=== PATIENT | female | born 1945 | race Caucasian/White ===

== ENCOUNTER 2017-10-31 13:41 | Inpatient (IN) | payer OTHER ==
[~2017-10-31] VITALS: Ht 162.6 cm; Wt 95.3 kg
[2017-10-31] MEDS ORDERED: VALSARTAN80 M1 PO (15:03)
[2017-10-31] MEDS ORDERED: METOPROLOL TART50 M1 PO (15:04)
[2017-10-31] MEDS ORDERED: ASPIRIN EC325 M2 PO (15:04)
[2017-10-31] MEDS ORDERED: FUROSEMIDE40 M1 PO (15:05)
[2017-10-31] MEDS ORDERED: ZOCOR20 M1 PO (15:06)
[2017-10-31] MEDS ORDERED: OXYBUTYNIN CHLO15 M1 PO (15:06)
[2017-10-31] MEDS ORDERED: FLUOXETINE HCL20 M2 PO (15:07)
[2017-10-31] MEDS ORDERED: CYCLOBENZAPRINE5 M2 PO (15:08)
[2017-10-31] MEDS ORDERED: GABAPENTIN400 M2 PO (15:09)
[2017-10-31] MEDS ORDERED: OXYCODONE-ACET1 EAC1 PO (15:09)
[2017-10-31] MEDS ORDERED: OMEPRAZOLE40 M1 PO (15:10)
[2017-10-31] MEDS ORDERED: RANITIDINE HCL150 MG PO (15:11)
[2017-10-31] MEDS ORDERED: LOMOTIL 2.5-0.1 EACH PO (15:11)
[2017-10-31] MEDS ORDERED: BUDESONIDE EC3 MG PO (15:11)
--- NOTE | 2017-10-31 15:39 | ED UPPER/LOWER EXTREMITY COMPL ---
History of Present Illness General Chief Complaint: Lower Extremity Problems Stated Complaint: RIGHT LEG CELLULITIS, SENT BY DR DOTSON Source: patient, family Exam Limitations: no limitations Allergies Coded Allergies: acetaminophen (From TYLENOL) (NAUSEA 10/31/17) solifenacin (From VESICARE) (RASH, SWELLING 10/31/17) Reconcile Medications Aspirin (Ecotrin*) 325 MG TABLET.DR 1 TAB PO DAILY HEART HEALTH (Reported) Budesonide (Budesonide EC) 3 MG CAPDR...ER 1 CAP PO TID UNKNOWN (Reported) Cyclobenzaprine HCl 5 MG TABLET 1 TAB PO TIDPRN PRN PAIN (Reported) Diphenoxylate HCl/Atropine (Lomotil 2.5-0.025 MG Tablet) 2.5 MG-0.025 MG TABLET 1 TAB PO TID PRN DIARRHEA (Reported) Fluoxetine HCl 20 MG CAPSULE 1 CAP PO DAILY MENTAL HEALTH (Reported) Furosemide 40 MG TABLET 1 TAB PO DAILY WATER RETENTION (Reported) Gabapentin 400 MG CAPSULE 1 CAP PO 4 TIMES/DAY UNKNOWN (Reported) Metoprolol Tartrate 50 MG TABLET 1 TAB PO TID HEART (Reported) Omeprazole 40 MG CAPSULE.DR 1 CAP PO DAILY GI (Reported) Oxybutynin Chloride (Oxybutynin Chloride ER) 15 MG TAB.ER.24 1 TAB PO TID BLADDER (Reported) Oxycodone HCl/Acetaminophen (Oxycodone-Acetaminophen 10-325) 10 MG-325 MG TABLET 1 TAB PO 4 TIMES/DAY PAIN (Reported) Ranitidine (Ranitidine HCl) 150 MG TABLET 1 TAB PO BID GI (Reported) Simvastatin (Zocor*) 20 MG TABLET 1 TAB PO DAILY CHOLESTEROL (Reported) Valsartan 80 MG TABLET 1 TAB PO DAILY HEART (Reported) Triage Note: SIB DR DOTSON FOR RIGHT LEG CELLULITIS. PT FAILED PO ANTIBIOTICS. PT ALSO STATES SHE IS DIZZY. BP IN TRIAGE 86/49 Triage Nurses Notes Reviewed? yes Onset: Gradual Duration: week(s): Timing: recent history Severity: moderate Pain/Injury Location: Right: Leg. HPI: 72YO female with hx of CHF, HTN presents to ED complaining of cellulitis to RLE. Patient states that this about 10 days ago she had her right knee tapped at an orthopedic office. A few days later patient had redness and swelling to her right nicholson. Patient's primary care doctor who started her on Keflex. Patient states that redness and swelling continued to increase and primary care started on Bactrim. She has had persistent cellulitis which has been spreading/ worsening and was referred here to the emergency department. Patient reports intermittent pains in right leg, worse with walking. She has no history of a similar infection. Patient denies injury or bleeding to area. She denies fevers, chills, abdominal pain, vomiting. (Iman Hodgson) Vital Signs & Intake/Output Vital Signs & Intake/Output Vital Signs Date Time Temp Pulse Resp B/P B/P Pulse O2 O2 Flow FiO2 Mean Ox Delivery Rate 10/31 2101 98.4 84 17 150/69 97 Room Air 10/31 1837 98.6 82 18 152/69 96 Room Air 10/31 1524 108/54 10/31 1401 98.6 79 20 86/49 97 Room Air (Fina HARP,Maksim Ferris) Past History Travel History Traveled to [place] past 21 day No Medical History Any Pertinent Medical History? see below for history Cardiovascular: CHF, hypertension, hyperlipidemia Gastrointestinal: GERD Surgical History Surgical History: non-contributory Psychosocial History What is your primary language Yakut Tobacco Use: Quit >30 days ago ETOH Use: denies use Illicit Drug Use: denies illicit drug use Family History Hx Contributory? No (Iman Hodgson) Review of Systems Review of Systems Constitutional: Reports: no symptoms. EENTM: Reports: no symptoms. Respiratory: Reports: no symptoms. Cardiovascular: Reports: no symptoms. Gastrointestinal/Abdominal: Reports: no symptoms. Genitourinary: Reports: no symptoms. Musculoskeletal: Reports: see HPI. Skin: Reports: see HPI. Neurological/Psychological: Reports: no symptoms. Hematologic/Endocrine: Reports: no symptoms. Immunological: Reports: no symptoms. All Other Systems: Reviewed and Negative (Iman Hodgson) Physical Exam Physical Exam General Appearance: well developed/nourished, no apparent distress, alert, awake Head: atraumatic, normal appearance Eyes: Bilateral: normal appearance. Ears, Nose, Throat: hearing grossly normal Neck: normal inspection, supple, full range of motion Cardiovascular/Respiratory: normal breath sounds, normal peripheral pulses, regular rate/rhythm, no respiratory distress Peripheral Pulses: 2+ dorsalis pedis (R), 2+ dorsalis pedis (L) Gastrointestinal: normal bowel sounds, soft, nontender Back: normal inspection, normal range of motion Leg Left: normal range of motion, normal inspection Leg Right: 2+ edema, ertyhema, and warmth from knee to ankle with 12x8cm area of fluctuance to prximal anterior nicholson, mild tenderness Hip Left: normal range of motion, normal inspection Hip Right: normal range of motion, normal inspection Knee Left: normal range of motion, normal inspection Knee Right: swelling and erythema Foot Left: normal inspection, normal range of motion Foot Right: swelling and proximal erythema Neurologic/Tendon: normal sensation, normal motor functions, normal tendon functions Skin: see right lower extremity exam as above (Ct JAIN,Iman Arce) Progress Differential Diagnosis: cellulitis, DVT, septic arthritis, sepsis Diagnostic Imaging: Viewed by Me: Radiology Read, CT Scan. Discussed w/RAD: Radiology Read, CT Scan. Radiology Impression: PATIENT: POPEYE REYNOLDS PRESENT AGE: 72 PATIENT ACCOUNT NO: [id number] : 44 LOCATION: [facility] ORDERING PHYSICIAN: Iman JAIN SERVICE DATE: 10/31/17 EXAM TYPE: CAT - CT LOWER EXT W IV CONTRAST EXAMINATION: CT LOWER EXTREMITY WITH CONTRAST, RIGHT CLINICAL INFORMATION: Evaluate for abscess right knee to ankle. Cellulitis with fluctuance. COMPARISON: None TECHNIQUE: CT scan of the right lower leg was performed with contrast. The [id number] extends from the knee to the ankle joint. 98 mL of Optiray 320 was given intravenously for the exam. DLP: 642 mGy- cm FINDINGS: There is a lobulated mostly encapsulated-appearing fluid collection beginning at the level of the patella in the region of the prepatellar bursa and extending distally in the deep subcutaneous soft tissues overlying the bone and fascia over a distance of approximately 23 cm proximal to distal. The collection measures up to 9 cm transverse and 3.3 cm AP. Proximally, the collection is centered within the prepatellar bursa. As it extends distally, it overlies the tibial tubercle and fascia overlying the anterior and peroneal compartments of the lower leg. There is likely a mildly enhancing capsule surrounding most of the collection with the capsule not clearly seen along the distal portion of the collection. There is some additional less well-defined scattered feathery density throughout the subcutaneous soft tissues circumferentially about the lower leg, compatible with edema or some concomitant more generalized cellulitis. There is minimal fluid tracking along the fascial planes between the medial head of the gastrocnemius and soleus. The muscles appear otherwise intact. There is a joint effusion. There is an area of subchondral fracture or avascular necrosis along the subchondral weightbearing portion of the lateral femoral condyle. This most likely reflects an area of spontaneous osteonecrosis of the knee versus subchondral insufficiency fracture. This fracture measures 20 mm AP and 13 mm transverse. There are multiple small areas of calcification or ossification within the joint and recesses which could reflect loose bodies or some nonspecific synovial calcification/chondrocalcinosis. The neurovascular structures are normal. IMPRESSION: Mostly encapsulated deep subcutaneous fluid collection extending from the prepatellar bursal region into the lower leg along the anterolateral aspect of the lower leg overlying the fascia and bone. This could reflect an abscess, seroma or hematoma. Additional edema or cellulitis circumferentially about the lower leg. Insufficiency fracture or focus of spontaneous osteonecrosis of the weightbearing portion of the lateral femoral condyle. Favor spontaneous osteonecrosis. Mild joint effusion. Additional chondrocalcinosis or small partially calcified or ossified loose bodies within the joint. DICTATED BY: Harshil Zhang MD DATE/TIME DICTATED:10/31/171628 PHONOGRAPH CARTRIDGE ASSEMBLER:KLAUS DATE/TIME TRANSCRIBED:10/31/171628 CONFIDENTIAL, DO NOT COPY WITHOUT APPROPRIATE AUTHORIZATION. <Electronically signed in Other Vendor System> SIGNED BY: Harshil Zhang MD 10/31/17 3206 CXR Impression: PATIENT: POPEYE REYNOLDS PRESENT AGE: 72 PATIENT ACCOUNT NO: [id number] : 44 LOCATION: [facility] ORDERING PHYSICIAN: Iman JAIN SERVICE DATE: 10/31/176727 EXAM TYPE: RAD - XRY-CHEST XRAY, TWO VIEWS EXAMINATION: XR CHEST CLINICAL INFORMATION: R/O CHF Signs Symptoms: REQUIRES IV FLUIDS FOR HYPOTENSION, HX CHF COMPARISON: None TECHNIQUE: 2 views of the chest were obtained. FINDINGS: There is no infiltrate. There is linear scarring at the left lung base. No pulmonary vascular congestion. No pleural effusion. Heart size is top normal. Orthopedic hardware in the dorsal spine. IMPRESSION: No acute abnormality of the chest. DICTATED BY: Brett Bhandari MD DATE/TIME DICTATED:10/31/171640 PHONOGRAPH CARTRIDGE ASSEMBLER:KLAUS DATE/TIME TRANSCRIBED:10/31/171640 CONFIDENTIAL, DO NOT COPY WITHOUT APPROPRIATE AUTHORIZATION. <Electronically signed in Other Vendor System> SIGNED BY: Brett Bhandari MD 10/31/171645 Initial ED EKG: sinus rhythm @78bpm, nonspecific ST changes (Ct JAIN,Iman Arce) Plan of Care: Orders Procedure Date/time Status Nothing by Mouth 11/01 B Active Regular Diet 10/31 D Complete Admit to inpatient 11/01 2135 Active Pathway - chart 10/31 2118 Active Patient Data 10/31 2118 Active EXTREMETIES CULTURE 10/31 2118 Active Code Status 10/31 2118 Active LACTIC ACID 10/31 1646 Complete EKG 10/31 1404 Active BLOOD CULTURE 10/31 1346 Active LACTIC ACID 10/31 1346 Complete COMPREHENSIVE METABOLIC PANEL 10/31 1346 Complete CBC WITHOUT DIFFERENTIAL 10/31 1346 Complete INCENTIVE SPIROMETRY TRX (GEN) 10/31 UNK Active Wound Care/Dressing 10/31 UNK Active VTE Mechanical Prophylaxis 10/31 UNK Active Vital Signs 10/31 UNK Active Intake & Output 10/31 UNK Active Activity/Ambulation 10/31 UNK Active Current Medications Sig/Amara Start time Last Medication Dose Stop Time Status Admin Pantoprazole Sodium 40 MG DAILY 11/01 0900 UNVr (Protonix) Ampicillin Sodium/ 3,000 MG Q6 10/31 2359 UNVr Sulbactam Sodium (Unasyn) Sodium Chloride 100 ML (Normal Saline 0.9%) Heparin Sodium 5,000 UNIT Q8 10/31 2200 UNVr (Porcine) Acetaminophen 1,000 MG Q8P PRN 10/31 2114 UNVr (Tylenol) Diphenhydramine HCl 50 MG Q6P PRN 10/31 2114 UNVr (Benadryl) Lactated Ringer's 75 ML .[HOURLY] 10/31 2114 UNir (Lactated Ringers) Morphine Sulfate 2 MG Q2P PRN 10/31 2114 UNVr (Morphine) Morphine Sulfate 4 MG Q2P PRN 10/31 2114 UNVr (Morphine) Doxycycline Hyclate 100 MG ONCE ONE 10/31 1530 CAN (Vibramycin) 10/31 1635 Dextrose/Water 100 ML (D5W) Laboratory Tests 10/31/17 1824: Lactic Acid 1.7 10/31/17 1450: Anion Gap 11, Estimated GFR 44 L, BUN/Creatinine Ratio 16.7, Glucose 94, Lactic Acid 1.8, Calcium 8.6, Total Bilirubin 0.7, AST 90 H, ALT 128 H, Alkaline Phosphatase 247 H, Total Protein 6.4, Albumin 3.0 L, Globulin 3.4, Albumin/ Globulin Ratio 0.9 L, CBC w Diff NO MAN DIFF REQ, RBC 4.07 L, MCV 85.9, MCH 27.1, MCHC 31.5 L, RDW 13.7, MPV 8.4, Gran % 85.2 H, Lymphocytes % 7.7 L, Monocytes % 4.6, Eosinophils % 2.4, Basophils % 0.1, Absolute Granulocytes 13.6 H, Absolute Lymphocytes 1.2, Absolute Monocytes 0.7 H, Absolute Eosinophils 0.4 , Absolute Basophils 0 Microbiology 10/31 2118 EXTREMITIE: Culture & Sensitivity - ORD 10/31 2118 EXTREMITIE: Gram Stain - ORD 10/31 1456 BLOOD: Blood Culture - RECD 10/31 1445 BLOOD: Blood Culture - RECD Dr. Harden present to see and evaluate the patient. Patient is being medicated with IV fluids given her initial hypotension. Lactic acid is within normal limits. An area of fluctuance were obtained CT imaging to further assess for abscess or fluid. Patient was started on IV and doxycycline to cover for her cellulitis and MRSA. CT scan shows fluid collection with possibility of spontaneous osteonecrosis. Awaiting orthopedic page for further evaluation. 7:09 PM - SPoke with Dr. 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 recommens general surgery consult for her abscess/fluid. Awaiting general surgery page 8:10 PM - spoke with Dr. English regarding this patient. He states that area will likely need to be drained, surgical PA to evaluate the patient here in the ER and they will discuss plan for her hospital stay. Case management recommend full admission. (Ct JAIN,Iman Arce) (Fina HARP,Maksim Ferris) Departure Departure Disposition: STILL A PATIENT Condition: Stable Clinical Impression Primary Impression: Cellulitis Qualifiers: Site of cellulitis: extremity Site of cellulitis of extremity: lower extremity Laterality: right Qualified Code: L03.115 - Cellulitis of right lower limb Secondary Impressions: Osteonecrosis Referrals: Christa HARP,Herminia Poole (PCP/Family) Departure Forms: Customer Survey General Discharge Information Admission Note Spoke With: Rachel HARP,Kp Boyd. Documentation of Exam: Documentation of any treatments & extenuating circumstances including Concerns Regarding Discharge (functional status, medication knowledge or non-compliance, living conditions, etc.) that warrant an admission rather than observation: [ Cellulitis with fluid collection requiring IV antibiotics, IV fluids, likely surgical drainage, surgical consult, repeat labs, premature discharge medically unsafe] (Ct JAIN,Iman Arce) PA/RAILROAD SUPERVISOR OF ENGINES Co-Sign Statement Statement: ED Attending supervision documentation- [X] I saw and evaluated the patient. I have also reviewed all the pertinent lab results and diagnostic results. I agree with the findings and the plan of care as documented in the PA's/RAILROAD SUPER[employer]OR [employer]'s documentation. Patient presents for evaluation of worsening right leg infection. Recently diagnosed with cellulitis and placed on Keflex. Physical examination reveals severe erythema and warmth and induration of the anterior right knee and leg with an area of fluctuance of the mid leg just lateral to midline. [] I have reviewed the ED Record and agree with the PA's/RAILROAD SUPER[employer]OR [employer]ES's documentation. [] Additions or exceptions (if any) to the PAs/RAILROAD SUPER[employer]'s note and plan are summarized below: [] (Fina HARP,Maksim Ferris)
--- NOTE | 2017-10-31 16:46 | RADIOLOGY REPORT ---
EXAMINATION: XR CHEST CLINICAL INFORMATION: R/O CHF Signs Symptoms: REQUIRES IV FLUIDS FOR HYPOTENSION, HX CHF COMPARISON: None TECHNIQUE: 2 views of the chest were obtained. FINDINGS: There is no infiltrate. There is linear scarring at the left lung base. No pulmonary vascular congestion. No pleural effusion. Heart size is top normal. Orthopedic hardware in the dorsal spine. IMPRESSION: No acute abnormality of the chest.
[2017-10-31 16:48] LABS: ABSOLUTE BASOPHIL COUNT 0 /CUMM (0.0-0.2); ABSOLUTE EOSINOPHIL COUNT 0.4 /CUMM (0.0-0.7); ABSOLUTE GRANULOCYTE CT 13.6 /CUMM (1.4-6.5); ABSOLUTE LYMPH COUNT 1.2 /CUMM (1.2-3.4); ABSOLUTE MONOCYTE COUNT 0.7 /CUMM (0.10-0.60); BASOPHIL % 0.1 % (0.0-2.0); EOSINOPHIL % 2.4 % (0-5); GRANULOCYTE % 85.2 % (42.2-75.2); MEAN CORPUSCULAR HGB 27.1 PG (27.0-31.0); MEAN CORPUSCULAR HGB CONC 31.5 G/DL (33.0-37.0); MEAN CORPUSCULAR VOLUME 85.9 FL (81.0-99.0); MEAN PLATELET VOLUME 8.4 FL (7.4-10.4); PLATELET COUNT 476 /CUMM (130-400); RBC DISTRIBUTION WIDTH 13.7 % (11.5-14.5); RED BLOOD CELL CT 4.07 /CUMM (4.20-5.40); WHITE BLOOD CELL COUNT 15.9 /CUMM (4.8-10.8)
--- NOTE | 2017-10-31 17:13 | CT SCAN REPORT ---
EXAMINATION: CT LOWER EXTREMITY WITH CONTRAST, RIGHT CLINICAL INFORMATION: Evaluate for abscess right knee to ankle. Cellulitis with fluctuance. COMPARISON: None TECHNIQUE: CT scan of the right lower leg was performed with contrast. The [id number] extends from the knee to the ankle joint. 98 mL of Optiray 320 was given intravenously for the exam. DLP: 642 mGy-cm FINDINGS: There is a lobulated mostly encapsulated-appearing fluid collection beginning at the level of the patella in the region of the prepatellar bursa and extending distally in the deep subcutaneous soft tissues overlying the bone and fascia over a distance of approximately 23 cm proximal to distal. The collection measures up to 9 cm transverse and 3.3 cm AP. Proximally, the collection is centered within the prepatellar bursa. As it extends distally, it overlies the tibial tubercle and fascia overlying the anterior and peroneal compartments of the lower leg. There is likely a mildly enhancing capsule surrounding most of the collection with the capsule not clearly seen along the distal portion of the collection. There is some additional less well-defined scattered feathery density throughout the subcutaneous soft tissues circumferentially about the lower leg, compatible with edema or some concomitant more generalized cellulitis. There is minimal fluid tracking along the fascial planes between the medial head of the gastrocnemius and soleus. The muscles appear otherwise intact. There is a joint effusion. There is an area of subchondral fracture or avascular necrosis along the subchondral weightbearing portion of the lateral femoral condyle. This most likely reflects an area of spontaneous osteonecrosis of the knee versus subchondral insufficiency fracture. This fracture measures 20 mm AP and 13 mm transverse. There are multiple small areas of calcification or ossification within the joint and recesses which could reflect loose bodies or some nonspecific synovial calcification/chondrocalcinosis. The neurovascular structures are normal. IMPRESSION: Mostly encapsulated deep subcutaneous fluid collection extending from the prepatellar bursal region into the lower leg along the anterolateral aspect of the lower leg overlying the fascia and bone. This could reflect an abscess, seroma or hematoma. Additional edema or cellulitis circumferentially about the lower leg. Insufficiency fracture or focus of spontaneous osteonecrosis of the weightbearing portion of the lateral femoral condyle. Favor spontaneous osteonecrosis. Mild joint effusion. Additional chondrocalcinosis or small partially calcified or ossified loose bodies within the joint.
--- NOTE | 2017-10-31 21:20 | Admission Core Measures ---
Acute Coronary Syndrome (CM) ACS Core Measures Acute Coronary Syndrome Diagnosis No Congestive Heart Failure (NEW) CHF Core Measures Congestive Heart Failure Diagnosis No Cerebrovascular Accident (NEW) CVA Core Measures CVA/TIA Diagnosis No Venous Thromboembolism VTE Core Mary (View Protocol) VTE Risk Factors No risk factors No Mechanical VTE Prophylaxis d/t N/A MechProphylax Ordered No VTE Pharm Prophylaxis d/t NA PharmProphylax ordered Problem List As ranked by this Provider includes Assessment & Plan 1. Cellulitis HOME MEDS Home Med List Aspirin (Ecotrin*) 325 MG TABLET.DR 1 TAB PO DAILY HEART HEALTH (Reported) Budesonide (Budesonide EC) 3 MG CAPDR...ER 1 CAP PO TID UNKNOWN (Reported) Cyclobenzaprine HCl 5 MG TABLET 1 TAB PO TIDPRN PRN PAIN (Reported) Diphenoxylate HCl/Atropine (Lomotil 2.5-0.025 MG Tablet) 2.5 MG-0.025 MG TABLET 1 TAB PO TID PRN DIARRHEA (Reported) Fluoxetine HCl 20 MG CAPSULE 1 CAP PO DAILY MENTAL HEALTH (Reported) Furosemide 40 MG TABLET 1 TAB PO DAILY WATER RETENTION (Reported) Gabapentin 400 MG CAPSULE 1 CAP PO 4 TIMES/DAY UNKNOWN (Reported) Metoprolol Tartrate 50 MG TABLET 1 TAB PO TID HEART (Reported) Omeprazole 40 MG CAPSULE.DR 1 CAP PO DAILY GI (Reported) Oxybutynin Chloride (Oxybutynin Chloride ER) 15 MG TAB.ER.24 1 TAB PO TID BLADDER (Reported) Oxycodone HCl/Acetaminophen (Oxycodone-Acetaminophen 10-325) 10 MG-325 MG TABLET 1 TAB PO 4 TIMES/DAY PAIN (Reported) Ranitidine (Ranitidine HCl) 150 MG TABLET 1 TAB PO BID GI (Reported) Simvastatin (Zocor*) 20 MG TABLET 1 TAB PO DAILY CHOLESTEROL (Reported) Valsartan 80 MG TABLET 1 TAB PO DAILY HEART (Reported)
--- NOTE | 2017-10-31 22:44 | History & Physical ---
General Information and HPI MD Statement: I have seen and personally examined POPEYE REYNOLDS and documented this H&P. The patient is a 72 year old F who presented with a patient stated chief complaint of []. 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 She is status post a knee tap at an [facility] urgent care prior to . Right after she began with erythema distally. This erythema progressed and the lower extremity became more taut. It then became painful more recently which is what prompted her visit to the emergency department today. She denies any fevers, chills, cough, chest pain, shortness of breath, abdominal pain, nausea, vomiting, diarrhea, new rashes, sick contacts, or recent travel. Prior to undergoing the knee tap at the urgent care she had been in her usual state of health. 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 Father also had Parkinson's, dementia and melanoma Social history: Negative for tobacco, alcohol, or illicit drug use. She is prescribed medical marijuana for her chronic back issues. She is and has 2 children. 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 Allergies/Medications Allergies: Coded Allergies: acetaminophen (From TYLENOL) (NAUSEA 10/31/17) solifenacin (From VESICARE) (RASH, SWELLING 10/31/17) Home Med list Aspirin (Ecotrin*) 325 MG TABLET. 1 TAB PO DAILY HEART HEALTH (Reported) Budesonide (Budesonide EC) 3 MG CAPDR...ER 1 CAP PO TID UNKNOWN (Reported) Cyclobenzaprine HCl 5 MG TABLET 1 TAB PO TIDPRN PRN PAIN (Reported) Diphenoxylate HCl/Atropine (Lomotil 2.5-0.025 MG Tablet) 2.5 MG-0.025 MG TABLET 1 TAB PO TID PRN DIARRHEA (Reported) Fluoxetine HCl 20 MG CAPSULE 1 CAP PO DAILY MENTAL HEALTH (Reported) Furosemide 40 MG TABLET 1 TAB PO DAILY WATER RETENTION (Reported) Gabapentin 400 MG CAPSULE 1 CAP PO 4 TIMES/DAY UNKNOWN (Reported) Metoprolol Tartrate 50 MG TABLET 1 TAB PO TID HEART (Reported) Omeprazole 40 MG CAPSULE.DR 1 CAP PO DAILY GI (Reported) Oxybutynin Chloride (Oxybutynin Chloride ER) 15 MG TAB.ER.24 1 TAB PO TID BLADDER (Reported) Oxycodone HCl/Acetaminophen (Oxycodone-Acetaminophen 10-325) 10 MG-325 MG TABLET 1 TAB PO 4 TIMES/DAY PAIN (Reported) Ranitidine (Ranitidine HCl) 150 MG TABLET 1 TAB PO BID GI (Reported) Simvastatin (Zocor*) 20 MG TABLET 1 TAB PO DAILY CHOLESTEROL (Reported) Valsartan 80 MG TABLET 1 TAB PO DAILY HEART (Reported) Compliance With Home Meds: GOOD Past History Travel History Traveled to [place] past 21 day No Medical History Cardiovascular: CHF, hypertension, hyperlipidemia Gastrointestinal: GERD Surgical History Surgical History: non-contributory Past Family/Social History Psychosocial History ETOH Use: denies use Illicit Drug Use: denies illicit drug use Review of Systems Review of Systems Constitutional: Denies: see HPI. Exam & Diagnostic Data Last 24 Hrs of Vital Signs/I&O Vital Signs Date Time Temp Pulse Resp B/P B/P Pulse O2 O2 Flow FiO2 Mean Ox Delivery Rate 10/31 2101 98.4 84 17 150/69 97 Room Air 10/31 1837 98.6 82 18 152/69 96 Room Air 10/31 1524 108/54 10/31 1401 98.6 79 20 86/49 97 Room Air Intake & Output 10/31 1600 10/31 0800 10/31 0000 Intake Total Output Total Balance Patient 198 lb Weight Weight Reported by Patient Measurement Method Physical Exam General Appearance Alert, Oriented X3, Cooperative, No Acute Distress Extremities Right Lower Extremity with significant erythema, edema, and induration, anterior lateral calf with large area of fluctuance, tender to palpation, distal pulses (pt/dp) 2+, Bedside I&D performed, prepped and draped in the usual sterile fashion. 2cm incision made over the fluctuant area on the anterolateral calf after injecting 5cc of 2%lidocaine with epi. Freedom blood clots and then freedom thin runny purulent fluid drained from cavity with a yankar and low wall suction for a total of approximately 350cc. Packed with 1/4" single wick, topped with fluff, kerlix and then an walter wrap. Erythema on leg marked with a surgical pen post procedure. Wound culture obtained. Patient tolerated the procedure well. Last 24 Hrs of Labs/Lorne: Laboratory Tests 10/31/17 1824: Lactic Acid 1.7 10/31/17 1450: Anion Gap 11, Estimated GFR 44 L, BUN/Creatinine Ratio 16.7, Glucose 94, Lactic Acid 1.8, Calcium 8.6, Total Bilirubin 0.7, AST 90 H, ALT 128 H, Alkaline Phosphatase 247 H, Total Protein 6.4, Albumin 3.0 L, Globulin 3.4, Albumin/ Globulin Ratio 0.9 L, CBC w Diff NO MAN DIFF REQ, RBC 4.07 L, MCV 85.9, MCH 27.1, MCHC 31.5 L, RDW 13.7, MPV 8.4, Gran % 85.2 H, Lymphocytes % 7.7 L, Monocytes % 4.6, Eosinophils % 2.4, Basophils % 0.1, Absolute Granulocytes 13.6 H, Absolute Lymphocytes 1.2, Absolute Monocytes 0.7 H, Absolute Eosinophils 0.4 , Absolute Basophils 0 Microbiology 10/31 2118 EXTREMITIE: Culture & Sensitivity - ORD 10/31 2118 EXTREMITIE: Gram Stain - ORD 10/31 1456 BLOOD: Blood Culture - RECD 10/31 1445 BLOOD: Blood Culture - RECD Diagnostic Data Other Results CT Scan RLExt 10/31/17: Mostly encapsulated deep subcutaneous fluid collection extending from the repatellar bursal region into the lower leg along the anterolateral aspect of the lower leg overlying the fascia and bone. This could reflect anabscess, seroma or hematoma. Additional edema or cellulitis circumferentially about the lower leg. Insufficiency fracture or focus of spontaneous osteonecrosis of theweightbearing portion of the lateral femoral condyle. Favor spontaneous osteonecrosis. Mild joint effusion. Additional chondrocalcinosis or small partially calcified or ossified loose bodies within the joint. 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 Workup reveals right lower extremity cellulitis and fluid collection. 1. Ambulate/IS/turn/cough/deep breathe 2. When necessary analgesics and antiemetics 3. Home medications for comorbidities 4. Unasyn 5. Regular diet, nothing by mouth after midnight, IV fluids 6. Follow-up wound culture 7. GI/DVT prophylaxis 8. Wound care by surgical team 9. Possible OR 11/01/17 10. Case discussed with Dr. English As Ranked By This Provider Problem List: 1. Abscess of right lower extremity Core Measures/Misc (04/07) Acute Coronary Syndrome ACS Diagnosis: No Congestive Heart Failure Congestive Heart Failure Diagnosis No Cerebrovascular Accident CVA/TIA Diagnosis: No VTE (View Protocol) VTE Risk Factors No risk factors No Mechanical VTE Prophylaxis d/t N/A MechProphylax Ordered No VTE Pharm Prophylaxis d/t NA PharmProphylax ordered Sepsis (View protocol) Sepsis Present: No
[2017-11-01 06:15] VITALS: BP 140/80; BP 166/80
--- NOTE | 2017-11-01 07:47 | PN- General Surgery ---
Subjective Subjective: I&D performed at bedside overnight. Pain well controlled, requesting home dose of percocet. Currently NPO, understands she may go to OR today for washout. States that pain and swelling is much improved after I&D. Denies nausea. Out of bed to bathroom. Objective Vital Signs and I&Os Vital Signs Date Time Temp Pulse Resp B/P B/P Pulse O2 O2 Flow FiO2 Mean Ox Delivery Rate 11/01 0615 98.2 88 20 166/80 95 Room Air 10/31 2325 99.5 89 17 142/66 95 Room Air 10/31 2101 98.4 84 17 150/69 97 Room Air 10/31 1837 98.6 82 18 152/69 96 Room Air 10/31 1524 108/54 10/31 1401 98.6 79 20 86/49 97 Room Air Intake & Output 11/01 0800 11/01 0000 10/31 1600 10/31 0800 10/31 0000 10/30 1600 Intake Total 2740 Output Total 200 Balance -200 2740 Intake, IV 2500 Intake, Oral 240 Output, Urine 200 Patient 210 lb 198 lb Weight Weight Bed scale Reported by Patient Measurement Method Physical Exam: General: CAOx3. NAD Lungs: Normal work of breathing Extremities: Packing removed to RLE, about 150 cc of purulent drainage mixed with blood expressed. 1+ DP. Erythema persists, less induration. Good ROM to RLE. Results Last 48 Hours of Labs: Laboratory Tests 10/31 10/31 1824 1450 Chemistry Sodium (137 - 145 mmol/L) 135 L Potassium (3.5 - 5.1 mmol/L) 4.4 Chloride (98 - 107 mmol/L) 94 L Carbon Dioxide (22 - 30 mmol/L) 30 Anion Gap (5 - 16) 11 BUN (7 - 17 mg/dL) 20 H Creatinine (0.5 - 1.0 mg/dL) 1.2 H Estimated GFR (>60 ml/min) 44 L BUN/Creatinine Ratio (7 - 25 %) 16.7 Glucose (65 - 99 mg/dL) 94 Lactic Acid (0.7 - 2.1 mmol/L) 1.7 1.8 Calcium (8.4 - 10.2 mg/dL) 8.6 Total Bilirubin (0.2 - 1.3 mg/dL) 0.7 AST (14 - 36 U/L) 90 H ALT (9 - 52 U/L) 128 H Alkaline Phosphatase (<127 U/L) 247 H Total Protein (6.3 - 8.2 g/dL) 6.4 Albumin (3.5 - 5.0 g/dL) 3.0 L Globulin (1.9 - 4.2 gm/dL) 3.4 Albumin/Globulin Ratio (1.1 - 2.2 %) 0.9 L Hematology CBC w Diff NO MAN DIFF REQ WBC (4.8 - 10.8 /CUMM) 15.9 H RBC (4.20 - 5.40 /CUMM) 4.07 L Hgb (12.0 - 16.0 G/DL) 11.0 L Hct (37 - 47 %) 35.0 L MCV (81.0 - 99.0 FL) 85.9 MCH (27.0 - 31.0 PG) 27.1 MCHC (33.0 - 37.0 G/DL) 31.5 L RDW (11.5 - 14.5 %) 13.7 Plt Count (130 - 400 /CUMM) 476 H MPV (7.4 - 10.4 FL) 8.4 Gran % (42.2 - 75.2 %) 85.2 H Lymphocytes % (20.5 - 51.1 %) 7.7 L Monocytes % (1.7 - 9.3 %) 4.6 Eosinophils % (0 - 5 %) 2.4 Basophils % (0.0 - 2.0 %) 0.1 Absolute Granulocytes (1.4 - 6.5 /CUMM) 13.6 H Absolute Lymphocytes (1.2 - 3.4 /CUMM) 1.2 Absolute Monocytes (0.10 - 0.60 /CUMM) 0.7 H Absolute Eosinophils (0.0 - 0.7 /CUMM) 0.4 Absolute Basophils (0.0 - 0.2 /CUMM) 0 Assessment/Plan Assessment/Plan This ia a 72 year old female admitted for right lower extremity cellulitis s/p bedside I&D 10/31/2017 after R knee aspiration about two weeks ago for a right knee effusion (unknown culture results). Packing changed this morning. - Continue Unasyn - Pain control: restarted home flexeril and percocet - Packing changes BID per nursing - NPO, IVF anticipate washout this afternoon, pending orthopedics - Orthopedic surgery consultation given CT findings of joint effusion and deep subcutaneous fluid collection to right knee - DVT prophylaxis: SQH - CBC, BMP ordered, pending - Follow up wound culture, no growth to date - Home medications reviewed and restarted. Hold Aspirin 325mg. - The patient was seen and examined with Dr. Ramos Core Measures Venous Thromboembolism VTE Risk Factors No risk factors No Mechanical VTE Prophylaxis d/t N/A MechProphylax Ordered No VTE Pharm Prophylaxis d/t NA PharmProphylax ordered
[2017-11-01 09:40] LABS: ABSOLUTE BASOPHIL COUNT 0 /CUMM (0.0-0.2); ABSOLUTE EOSINOPHIL COUNT 0.4 /CUMM (0.0-0.7); ABSOLUTE GRANULOCYTE CT 8.1 /CUMM (1.4-6.5); ABSOLUTE LYMPH COUNT 1.6 /CUMM (1.2-3.4); ABSOLUTE MONOCYTE COUNT 0.6 /CUMM (0.10-0.60); BASOPHIL % 0.3 % (0.0-2.0); EOSINOPHIL % 4.1 % (0-5); GRANULOCYTE % 75.4 % (42.2-75.2); HEMATOCRIT 31.8 % (37-47); MEAN CORPUSCULAR HGB 27.5 PG (27.0-31.0); MEAN CORPUSCULAR HGB CONC 32.3 G/DL (33.0-37.0); MEAN CORPUSCULAR VOLUME 85.2 FL (81.0-99.0); MEAN PLATELET VOLUME 7.7 FL (7.4-10.4); PLATELET COUNT 444 /CUMM (130-400); RBC DISTRIBUTION WIDTH 13.8 % (11.5-14.5); RED BLOOD CELL CT 3.73 /CUMM (4.20-5.40); WHITE BLOOD CELL COUNT 10.7 /CUMM (4.8-10.8)
[2017-11-01 10:33] VITALS: BP 150/90
[2017-11-01 13:47] VITALS: BP 122/60
--- NOTE | 2017-11-01 18:22 | History & Physical Pre-Op ---
General Information and HPI MD Statement: I have seen and personally examined POPEYE REYNOLDS and documented this H&P. The patient is a 72 year old F who presented with a patient stated chief complaint of []. Source of Information: patient Exam Limitations: no limitations History of Present Illness: CC: Leg infection HPI: 72-year-old nondiabetic nonsmoker with a history of hypertension GERD and Aguilar's esophagus and back surgery but no extremity problems came to the ER yesterday evening with an increasingly painful swollen and reddened right leg. This started a few days before about 2 weeks ago when she woke up with a swollen stiff knee and it hurt to walk there was no redness then she went to the walk-in orthopedic clinic with a did a needle drainage after this it started to turn a little red and the redness spread down her nicholson she followed up at the orthopedic office was told it was cellulitis continued to worsen she can still walk and there were no fevers but she came to the ER here. After review and discussion our surgical PA urgently performed a bedside incision and drainage to temporize the situation I've reviewed the [facility]. Family history positive for Parkinson's melanoma and heart disease Allergies/Medications Allergies: Coded Allergies: solifenacin (From VESICARE) (RASH, SWELLING 10/31/17) acetaminophen (From TYLENOL) (NAUSEA 11/01/17) Home Med list Aspirin (Ecotrin*) 325 MG TABLET.DR 1 TAB PO DAILY HEART HEALTH (Reported) Budesonide (Budesonide EC) 3 MG CAPDR...ER 1 CAP PO TID UNKNOWN (Reported) Cyclobenzaprine HCl 5 MG TABLET 1 TAB PO TIDPRN PRN PAIN (Reported) Diphenoxylate HCl/Atropine (Lomotil 2.5-0.025 MG Tablet) 2.5 MG-0.025 MG TABLET 1 TAB PO TID PRN DIARRHEA (Reported) Fluoxetine HCl 20 MG CAPSULE 1 CAP PO DAILY MENTAL HEALTH (Reported) Furosemide 40 MG TABLET 1 TAB PO DAILY WATER RETENTION (Reported) Gabapentin 400 MG CAPSULE 1 CAP PO 4 TIMES/DAY UNKNOWN (Reported) Metoprolol Tartrate 50 MG TABLET 1 TAB PO TID HEART (Reported) Omeprazole 40 MG CAPSULE.DR 1 CAP PO DAILY GI (Reported) Oxybutynin Chloride (Oxybutynin Chloride ER) 15 MG TAB.ER.24 1 TAB PO TID BLADDER (Reported) Oxycodone HCl/Acetaminophen (Oxycodone-Acetaminophen 10-325) 10 MG-325 MG TABLET 1 TAB PO 4 TIMES/DAY PAIN (Reported) Ranitidine (Ranitidine HCl) 150 MG TABLET 1 TAB PO BID GI (Reported) Simvastatin (Zocor*) 20 MG TABLET 1 TAB PO DAILY CHOLESTEROL (Reported) Valsartan 80 MG TABLET 1 TAB PO DAILY HEART (Reported) Compliance With Home Meds: GOOD Past History Medical History Blood Transfusion Hx: Yes Neurological: NONE EENT: NONE Cardiovascular: CHF, hypertension, hyperlipidemia Respiratory: NONE Gastrointestinal: GERD, SHY'S ESOPHAGUS Hepatic: NONE Renal: NONE Musculoskeletal: NONE Psychiatric: anxiety, depression Endocrine: NONE Blood Disorders: NONE Cancer(s): NONE MERCHANDISING COORDINATOR/Reproductive: NONE Isolation History: Standard Surgical History Pertinent Surgical History: non-contributory Past Family/Social History Psychosocial History Where Do You Live? Home Smoking Status: Former Smoker ETOH Use: denies use Illicit Drug Use: denies illicit drug use Review of Systems Review of Systems: Constitutional: No fever, sweats or weight loss ENMT: No sore throat Cardiovascular: No chest pain, palpitations or leg swelling Respiratory: No shortness of breath, cough, or sputum or dyspnea on exertion GI: No GERD or bleeding per rectum : No dysuria or hematuria Musculoskeletal: No new muscle weakness, bone or joint pain Skin / Breast: No jaundice, rashes or itching Psychiatric: No history of drug or alcohol abuse but has a history of depression anxiety Hematologic / lymphatic system: No problems with excessive bleeding, bruising, or blood clots Exam & Diagnostic Data Last 24 Hrs of Vital Signs/I&O I reviewed Vital Signs Date Time Temp Pulse Resp B/P B/P Pulse O2 O2 Flow FiO2 Mean Ox Delivery Rate 11/01 1426 Room Air Room Air 11/01 1347 98.2 68 18 122/60 93 Room Air 11/01 1033 98.2 86 20 150/90 96 Room Air 11/01 1008 81 140/80 11/01 1006 81 140/80 11/01 0615 98.2 88 20 166/80 95 Room Air 10/31 2325 99.5 89 17 142/66 95 Room Air 10/31 2101 98.4 84 17 150/69 97 Room Air 10/31 1837 98.6 82 18 152/69 96 Room Air I reviewed Intake & Output 11/01 1600 11/01 0800 11/01 0000 Intake Total 600 2740 Output Total 200 Balance 400 2740 Intake, IV 600 2500 Intake, Oral 0 240 Output, Urine 200 Patient 210 lb Weight Weight Bed scale Measurement Method Physical Exam: Constitutional: pleasant, no acute distress, conversant Eyes: sclera anicteric ENMT: ears and nose atraumatic, moist mucous membranes, good dentition, no lip lesions Neck: Supple, trachea is midline, no cervical or supraclavicular adenopathy and no palpable thyromegaly Cardiovascular: S1, S2, no murmurs, no peripheral edema Respiratory: clear to auscultation with normal respiratory effort and no intercostal retractions GI: abdomen soft, nontender, nondistended, no palpable hepatosplenomegaly Extremities / lymphatics: symmetrically warm, free range of motion no peripheral edema, no cervical, supraclavicular, axillary, or inguinal adenopathy Musculoskeletal: Normal gait and station, no digital cyanosis, good muscle strength and tone no atrophy, motor grossly 5 out of 5 throughout Skin: no jaundice, no rashes warm, nondiaphoretic, Right leg from the knee down anteriorly and a little laterally is cellulitic and indurated and fluctuant there is an incision lower down about 2 cm long with some cloudy drainage Psychiatric: mood and affect are appropriate and alert and oriented to person place and time Diagnostic Data Other Results CT Scan RLExt 10/31/17: Mostly encapsulated deep subcutaneous fluid collection extending from the repatellar bursal region into the lower leg along the anterolateral aspect of the lower leg overlying the fascia and bone. This could reflect anabscess, seroma or hematoma. Additional edema or cellulitis circumferentially about the lower leg. Insufficiency fracture or focus of spontaneous osteonecrosis of theweightbearing portion of the lateral femoral condyle. Favor spontaneous osteonecrosis. Mild joint effusion. Additional chondrocalcinosis or small partially calcified or ossified loose bodies within the joint. Assessment/Plan Assessment/Plan: I reviewed the CT scan on PACS myself of the extremity last night that shows a little bit of fluid in the knee joint but more impressive is a large fluid collection subcutaneous tracking from approximately the area of the patella down along the tibia towards the ankle with overlying skin edema and stranding. Impression is patient initially had some inflammation at her knee probably an effusion which then possibly got infected leading to an abscess with overlying cellulitis she is slightly better today since the I&D last night but I feel she needs to be taken to the operating room after we discuss and review the case with orthopedics and opened up this long large area more and wash it out it's so long I feel she is a counter incision up by her knee. She is a little bit overweight but fortunately she ambulates is not diabetic and doesn't smoke. As Ranked By This Provider Problem List: 1. Abscess of right lower extremity 2. Cellulitis
[2017-11-01 18:34] VITALS: BP 158/80
--- NOTE | 2017-11-01 22:04 | PN- General Surgery ---
Subjective Subjective: Postop check Pt is now s/p I&D of R leg fluid collection in the OR. She reports significant relief and pain is well controlled. She tolerated dinner and is voiding well. No major complaints. Ambulates to bathroom independently. Objective Vital Signs and I&Os Vital Signs Date Time Temp Pulse Resp B/P B/P Pulse O2 O2 Flow FiO2 Mean Ox Delivery Rate 11/01 2108 75 158/80 11/01 1834 97.6 75 18 158/80 96 Room Air 11/01 1426 Room Air Room Air 11/01 1347 98.2 68 18 122/60 93 Room Air 11/01 1033 98.2 86 20 150/90 96 Room Air 11/01 1008 81 140/80 11/01 1006 81 140/80 11/01 0615 98.2 88 20 166/80 95 Room Air 10/31 2325 99.5 89 17 142/66 95 Room Air Intake & Output 11/01 1600 11/01 0800 11/01 0000 10/31 1600 10/31 0800 10/31 0000 Intake Total 600 2740 Output Total 200 Balance 400 2740 Intake, IV 600 2500 Intake, Oral 0 240 Output, Urine 200 Patient 210 lb 198 lb Weight Weight Bed scale Reported by Patient Measurement Method Physical Exam: Gen: Pt is awake and alert. NAD. Card: regular Pulm: cta bilat Ext: RLE dressing is c/d/i. Cheko wrap was applied as advised by Dr. Leung. sensation is intact. Assessment/Plan Assessment/Plan Pt is a 72 year old female admitted for right lower extremity cellulitis s/p bedside I&D 10/31/2017 after R knee aspiration about two weeks ago for a right knee effusion (unknown culture results). Now POD #0 s/p 2nd I&D of right lower extremity. - Continue Unasyn. F/u OR cultures. Monitor temps. - Pain control with morphine or percocet as needed. - Advance diet as tolerated. OK to heplock IVF. - Dressing change Saturday. Cheko wrap applied tonight as advised by Dr. Leung to slow bursa fluid. - SC heparin and alp on L leg for dvt ppx. - home meds resumed. Will d/w Dr. Ramos if it's ok to resume tomorrow AM. Core Measures Venous Thromboembolism VTE Risk Factors Surgery No Mechanical VTE Prophylaxis d/t N/A MechProphylax Ordered No VTE Pharm Prophylaxis d/t NA PharmProphylax ordered
[2017-11-01 22:31] VITALS: BP 122/68
[2017-11-02 06:23] VITALS: BP 170/86
--- NOTE | 2017-11-02 08:14 | PN- General Surgery ---
See Addendum Subjective Subjective: Patient continues to feel better, minimal pain, no fever or flulike illness, no constitutional symptoms Objective Vital Signs and I&Os Vital Signs Date Time Temp Pulse Resp B/P B/P Pulse O2 O2 Flow FiO2 Mean Ox Delivery Rate 11/02 0623 98.1 70 20 170/86 94 Room Air 11/01 2231 98.9 76 20 122/68 94 11/01 2108 75 158/80 11/01 1834 97.6 75 18 158/80 96 Room Air 11/01 1426 Room Air Room Air 11/01 1347 98.2 68 18 122/60 93 Room Air 11/01 1033 98.2 86 20 150/90 96 Room Air 11/01 1008 81 140/80 11/01 1006 81 140/80 Intake & Output 11/02 1600 11/02 0800 11/02 0000 11/01 1600 11/01 0800 11/01 0000 Intake Total 630 105 729 3741 Output Total 200 Balance 630 798 787 5951 Intake, IV 150 197 068 7099 Intake, Oral 480 360 0 240 Output, Urine 200 Patient 210 lb Weight Weight Bed scale Measurement Method Physical Exam: Well-developed well-nourished no apparent distress. HEENT: Atraumatic, extraocular motion intact Neck: Supple, no lymphadenopathy Respiratory: No respiratory distress Extremities: +1 pitting bilateral lower extremity edema right lower extremity dressing in place, Range of motion is 0-60 right knee. Compression wrap in place. Neurovascularly intact distally Bilateral calves are supple, nontender. Neuro: Alert and oriented x3 Psych: Mood affect normal, normal memory normal judgment. Skin: Warm and dry, no rash on exposed skin Results Last 48 Hours of Labs: Laboratory Tests 11/01 10/31 0915 1824 Chemistry Sodium (137 - 145 mmol/L) 137 Potassium (3.5 - 5.1 mmol/L) 3.9 Chloride (98 - 107 mmol/L) 100 Carbon Dioxide (22 - 30 mmol/L) 27 Anion Gap (5 - 16) 11 BUN (7 - 17 mg/dL) 12 Creatinine (0.5 - 1.0 mg/dL) 0.7 Estimated GFR (>60 ml/min) > 60 BUN/Creatinine Ratio (7 - 25 %) 17.1 Lactic Acid (0.7 - 2.1 mmol/L) 1.7 Hematology CBC w Diff NO MAN DIFF REQ WBC (4.8 - 10.8 /CUMM) 10.7 RBC (4.20 - 5.40 /CUMM) 3.73 L Hgb (12.0 - 16.0 G/DL) 10.2 L Hct (37 - 47 %) 31.8 L MCV (81.0 - 99.0 FL) 85.2 MCH (27.0 - 31.0 PG) 27.5 MCHC (33.0 - 37.0 G/DL) 32.3 L RDW (11.5 - 14.5 %) 13.8 Plt Count (130 - 400 /CUMM) 444 H MPV (7.4 - 10.4 FL) 7.7 Gran % (42.2 - 75.2 %) 75.4 H Lymphocytes % (20.5 - 51.1 %) 14.6 L Monocytes % (1.7 - 9.3 %) 5.6 Eosinophils % (0 - 5 %) 4.1 Basophils % (0.0 - 2.0 %) 0.3 Absolute Granulocytes (1.4 - 6.5 /CUMM) 8.1 H Absolute Lymphocytes (1.2 - 3.4 /CUMM) 1.6 Absolute Monocytes (0.10 - 0.60 /CUMM) 0.6 Absolute Eosinophils (0.0 - 0.7 /CUMM) 0.4 Absolute Basophils (0.0 - 0.2 /CUMM) 0 /12 1450 Chemistry Sodium (137 - 145 mmol/L) 135 L Potassium (3.5 - 5.1 mmol/L) 4.4 Chloride (98 - 107 mmol/L) 94 L Carbon Dioxide (22 - 30 mmol/L) 30 Anion Gap (5 - 16) 11 BUN (7 - 17 mg/dL) 20 H Creatinine (0.5 - 1.0 mg/dL) 1.2 H Estimated GFR (>60 ml/min) 44 L BUN/Creatinine Ratio (7 - 25 %) 16.7 Glucose (65 - 99 mg/dL) 94 Lactic Acid (0.7 - 2.1 mmol/L) 1.8 Calcium (8.4 - 10.2 mg/dL) 8.6 Total Bilirubin (0.2 - 1.3 mg/dL) 0.7 AST (14 - 36 U/L) 90 H ALT (9 - 52 U/L) 128 H Alkaline Phosphatase (<127 U/L) 247 H Total Protein (6.3 - 8.2 g/dL) 6.4 Albumin (3.5 - 5.0 g/dL) 3.0 L Globulin (1.9 - 4.2 gm/dL) 3.4 Albumin/Globulin Ratio (1.1 - 2.2 %) 0.9 L Hematology CBC w Diff NO MAN DIFF REQ WBC (4.8 - 10.8 /CUMM) 15.9 H RBC (4.20 - 5.40 /CUMM) 4.07 L Hgb (12.0 - 16.0 G/DL) 11.0 L Hct (37 - 47 %) 35.0 L MCV (81.0 - 99.0 FL) 85.9 MCH (27.0 - 31.0 PG) 27.1 MCHC (33.0 - 37.0 G/DL) 31.5 L RDW (11.5 - 14.5 %) 13.7 Plt Count (130 - 400 /CUMM) 476 H MPV (7.4 - 10.4 FL) 8.4 Gran % (42.2 - 75.2 %) 85.2 H Lymphocytes % (20.5 - 51.1 %) 7.7 L Monocytes % (1.7 - 9.3 %) 4.6 Eosinophils % (0 - 5 %) 2.4 Basophils % (0.0 - 2.0 %) 0.1 Absolute Granulocytes (1.4 - 6.5 /CUMM) 13.6 H Absolute Lymphocytes (1.2 - 3.4 /CUMM) 1.2 Absolute Monocytes (0.10 - 0.60 /CUMM) 0.7 H Absolute Eosinophils (0.0 - 0.7 /CUMM) 0.4 Absolute Basophils (0.0 - 0.2 /CUMM) 0 Assessment/Plan Assessment/Plan Pt is a 72 year old female admitted for right lower extremity cellulitis s/p bedside I&D 10/31/2017 after R knee aspiration about two weeks ago for a right knee effusion (unknown culture results). Now POD #1 s/p 2nd I&D of right lower extremity. - Continue Unasyn. F/u OR cultures. Monitor temps. - Pain control with morphine or percocet as needed. -Regular diet - Dressing change Saturday. Continue Cheko wrap for compression - SC heparin and alp on L leg for dvt ppx. - OOB/ambulate ad joanna Core Measures Venous Thromboembolism VTE Risk Factors Surgery No Mechanical VTE Prophylaxis d/t N/A MechProphylax Ordered No VTE Pharm Prophylaxis d/t NA PharmProphylax ordered
[2017-11-02 09:21] LABS: ABSOLUTE BASOPHIL COUNT 0.1 /CUMM (0.0-0.2); ABSOLUTE EOSINOPHIL COUNT 0.7 /CUMM (0.0-0.7); ABSOLUTE GRANULOCYTE CT 5.6 /CUMM (1.4-6.5); ABSOLUTE LYMPH COUNT 1.9 /CUMM (1.2-3.4); ABSOLUTE MONOCYTE COUNT 0.6 /CUMM (0.10-0.60); BASOPHIL % 0.6 % (0.0-2.0); EOSINOPHIL % 8.3 % (0-5); GRANULOCYTE % 63.5 % (42.2-75.2); HEMATOCRIT 32.8 % (37-47); MEAN CORPUSCULAR HGB 27.9 PG (27.0-31.0); MEAN CORPUSCULAR HGB CONC 32.7 G/DL (33.0-37.0); MEAN CORPUSCULAR VOLUME 85.5 FL (81.0-99.0); MEAN PLATELET VOLUME 8.1 FL (7.4-10.4); PLATELET COUNT 554 /CUMM (130-400); RBC DISTRIBUTION WIDTH 13.7 % (11.5-14.5); RED BLOOD CELL CT 3.84 /CUMM (4.20-5.40); WHITE BLOOD CELL COUNT 8.8 /CUMM (4.8-10.8)
[2017-11-02 13:45] VITALS: BP 140/60
--- NOTE | 2017-11-02 18:37 | Operative Report ---
Operative/Inv Procedure Report Surgery Date: 11/01/17 Name of Procedure: Incision and drainage and washout of right leg Pre-Operative Diagnosis: Right leg abscess Post-Operative Diagnosis: Same, knee bursitis Estimated Blood Loss: scant Surgeon/Defensive Line Coach: Rachel HARP,Kp JAIN Anesthesia: general endotracheal tube Operative/Procedure Note Note: She was positioned supine after induction of anesthesia and timeouts the right leg was prepped and draped in usual sterile fashion. He had about a 1-1/2 cm incision right lower leg laterally we injected local anesthetic and enlarged it both ends 4 cm total we used the pulse lavage here you could put your finger up superiorly and it communicates with the subcutaneous space over the knee so we made a counter incision just below the patella about 3 cm long also after injecting local anesthetic and through both of these areas we irrigated copiously there was still some fibrinous exudate she had already been cultured after pulse lavage checking for hemostasis with cautery we suctioned with both areas with iodoform gauze packing tape and covered it with fluff gauze and Nehemiah and an Cheko wrap lightly. No that the involved area spans from her knee down to her ankle. EBL minimal lap and sponge counts correct wound expectancy infected IV fluids crystalloid complications none patient tolerated the procedure well was awakened and returned to recovery room in satisfactory condition.
--- NOTE | 2017-11-02 20:14 | Cons- Orthopedic ---
General Information and HPI Consulting Request Date of Consult: 11/01/17 Requested By: Rachel HARP,Kp Christianson Reason for Consult: Right knee and leg swelling Source of Information: patient Exam Limitations: no limitations History of Present Illness: Patient is a 72-year-old woman with a history of swelling and pain involving the right knee and leg starting just before near the end of September. No recent injury but she does recall a direct fall on the right knee about 2 years ago which resulted in fluid accumulation in the knee. She stated that she had some swelling over the front of the knee since the fall. However she developed increased pain and stiffness and redness most recently and was evaluated at an orthopedic urgent care and had apparent aspiration She was referred to an orthopedic physician but she states no definitive treatment was undertaken. She was seen by her primary physician and was told to go to the emergency room. The exact results of the aspiration are unknown. She describes stiffness especially with endpoint flexion. Most of discomfort is over the anterior aspect of the knee. In the emergency room, she was evaluated by the emergency room personnel and apparently had an incision and drainage at the lower portion of the area of swelling. She was admitted to the general surgical service for further treatment. We have been asked to assess the patient and to comment on possible involvement of the right knee joint. Allergies/Medications Allergies: Coded Allergies: solifenacin (From VESICARE) (RASH, SWELLING 10/31/17) acetaminophen (From TYLENOL) (NAUSEA 11/01/17) Home Med List: Aspirin (Ecotrin*) 325 MG TABLET.DR 1 TAB PO DAILY HEART HEALTH (Reported) Budesonide (Budesonide EC) 3 MG CAPDR...ER 1 CAP PO TID UNKNOWN (Reported) Cyclobenzaprine HCl 5 MG TABLET 1 TAB PO TIDPRN PRN PAIN (Reported) Diphenoxylate HCl/Atropine (Lomotil 2.5-0.025 MG Tablet) 2.5 MG-0.025 MG TABLET 1 TAB PO TID PRN DIARRHEA (Reported) Fluoxetine HCl 20 MG CAPSULE 1 CAP PO DAILY MENTAL HEALTH (Reported) Furosemide 40 MG TABLET 1 TAB PO DAILY WATER RETENTION (Reported) Gabapentin 400 MG CAPSULE 1 CAP PO 4 TIMES/DAY UNKNOWN (Reported) Metoprolol Tartrate 50 MG TABLET 1 TAB PO TID HEART (Reported) Omeprazole 40 MG CAPSULE.DR 1 CAP PO DAILY GI (Reported) Oxybutynin Chloride (Oxybutynin Chloride ER) 15 MG TAB.ER.24 1 TAB PO TID BLADDER (Reported) Oxycodone HCl/Acetaminophen (Oxycodone-Acetaminophen 10-325) 10 MG-325 MG TABLET 1 TAB PO 4 TIMES/DAY PAIN (Reported) Ranitidine (Ranitidine HCl) 150 MG TABLET 1 TAB PO BID GI (Reported) Simvastatin (Zocor*) 20 MG TABLET 1 TAB PO DAILY CHOLESTEROL (Reported) Valsartan 80 MG TABLET 1 TAB PO DAILY HEART (Reported) Past History Medical History Blood Transfusion Hx: Yes Neurological: NONE EENT: NONE Cardiovascular: CHF, hypertension, hyperlipidemia Respiratory: NONE Gastrointestinal: GERD, SHY'S ESOPHAGUS Hepatic: NONE Renal: NONE Musculoskeletal: NONE Psychiatric: anxiety, depression Endocrine: NONE Blood Disorders: NONE Cancer(s): NONE 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 Home Smoking Status: Former Smoker ETOH Use: denies use Illicit Drug Use: denies illicit drug use Exam & Diagnostic Data Vital Signs and I&O Vital Signs Date Time Temp Pulse Resp B/P B/P Pulse O2 O2 Flow FiO2 Mean Ox Delivery Rate 11/02 1345 98.5 75 20 140/60 100 Room Air 11/02 1343 72 152/64 11/02 0901 98.3 88 18 160/66 11/02 0900 98.3 88 18 160/66 11/02 0623 98.1 70 20 170/86 94 Room Air 11/01 2231 98.9 76 20 122/68 94 11/01 2108 75 158/80 Intake & Output 11/02 1600 11/02 0800 11/02 0000 11/01 1600 11/01 0800 11/01 0000 Intake Total 800 630 617 379 2927 Output Total 400 200 Balance 400 630 769 863 4181 Intake, IV 150 027 053 3413 Intake, Oral 800 480 360 0 240 Output, Urine 400 200 Patient 210 lb Weight Weight Bed scale Measurement Method Physical Exam: The patient was evaluated in her room. She was in her bed. She answered questions appropriately. No discomfort at rest. Examination of the right lower extremity revealed diffuse erythema throughout the lower extremity. Calf compartments are soft and nontender posteriorly medially and laterally. She did have swelling of the right lower extremity along with the erythematous findings. She had a dressing covering and incision and drainage site which is approximately 2 cm in length. Mild drainage adjacent to wick. Normal gross sensation of foot. There is some moderate fluctuance over the prepatellar bursa. Patient comfortably extends knee and flex his knee. At approximately 100 of flexion she starts to have tightness and discomfort over the anterior aspect of the knee. By exam, no definite significant effusion. Knee is stable. Motor intact distally with ankle dorsiflexion and toe flexion and dorsiflexion intact. Last 24 Hours of Labs: Laboratory Tests 11/02 08 Hematology CBC w Diff NO MAN DIFF REQ WBC (4.8 - 10.8 /CUMM) 8.8 RBC (4.20 - 5.40 /CUMM) 3.84 L Hgb (12.0 - 16.0 G/DL) 10.7 L Hct (37 - 47 %) 32.8 L MCV (81.0 - 99.0 FL) 85.5 MCH (27.0 - 31.0 PG) 27.9 MCHC (33.0 - 37.0 G/DL) 32.7 L RDW (11.5 - 14.5 %) 13.7 Plt Count (130 - 400 /CUMM) 554 H MPV (7.4 - 10.4 FL) 8.1 Gran % (42.2 - 75.2 %) 63.5 Lymphocytes % (20.5 - 51.1 %) 21.1 Monocytes % (1.7 - 9.3 %) 6.5 Eosinophils % (0 - 5 %) 8.3 H Basophils % (0.0 - 2.0 %) 0.6 Absolute Granulocytes (1.4 - 6.5 /CUMM) 5.6 Absolute Lymphocytes (1.2 - 3.4 /CUMM) 1.9 Absolute Monocytes (0.10 - 0.60 /CUMM) 0.6 Absolute Eosinophils (0.0 - 0.7 /CUMM) 0.7 Absolute Basophils (0.0 - 0.2 /CUMM) 0.1 Imaging Results: I did review the CT scan of the right lower extremity. There is a large fluid collection within the subcutaneous tissue and prepatellar bursal area. No definite communication with the knee. CT does appear to reveal a mild knee effusion. Question of avascular changes in the distal femur Assessment/Plan Assessment/Plan Cellulitis right lower extremity with prepatellar bursal collection-there is no definite evidence of knee involvement. Imaging and exam is most consistent with an extra-articular collection. Would pursue finding the results of the original aspiration to determine if there was a organism isolated. I was informed that patient would be taken to the operating room for evacuation of this collection and I contacted the surgical PA as well as the general surgical attending. Would be available if there are any findings consistent with intra-articular communication. Intraoperative cultures can also be helpful though patient has been on antibiotics. Consult Acknowledgment - Thank you for your consult request. Attending MD Review Statement Attending Statement Attending MD Statement: examined this patient, discuss w/resident/PA/SALES PROMOTION COORDINATOR, reviewed images
[2017-11-02 22:28] VITALS: BP 160/80
[2017-11-03 06:02] VITALS: BP 148/80
--- NOTE | 2017-11-03 12:57 | Discharge Summary ---
Visit Information Visit Dates Admission Date: 10/31/17 Discharge Date: 11-03-17 Hospital Course Course Attending Physician: Kp Ramos MD Primary Care Physician: Herminia Goodwin MD Hospital Course: thru ER for large R leg abscess after oupt needle aspir knee, had to go to OR for I&D, cultures prob MRSA, improved 4th day, dc home on Bactrim, no packing, light walter Allergies: Coded Allergies: solifenacin (From VESICARE) (RASH, SWELLING 10/31/17) acetaminophen (From TYLENOL) (NAUSEA 11/01/17) Pertinent Lab Results: WBC normalized to 8 Disposition Summary Disposition Principal Diagnosis: leg abscess Additional Diagnosis: none acute Discharge Disposition: home or self care Discharge Instructions General Discharge Information Code Status: Full Code Patient's Diet: no chges Patient's Activity: no chnges Follow-Up Instructions/Appts: next week office unless more pain fever Copies To: Kp Ramos MD
--- NOTE | 2017-11-03 13:05 | Patient Discharge Instructions ---
Discharge Instructions General Discharge Information You were seen/treated for: Cellulitis of the leg You had these procedures: Incision and drainage and packing placement Watch for these problems: Temp greater than 101, increased redness or drainage of wounds, chills, purulent drainage of wounds No bath, but you may shower: Yes Other wound care: Keep incisions clean and dry. Diet Continue normal diet: Yes Activity Activity Self Limited: Yes Acute Coronary Syndrome Inclusion Criteria At DC or during hospital stay patient has or had the following: Discharge Core Measures Meds if any: Prescribed or Continued at Discharge Meds if any: NOT Prescribed or Continued at Discharge Congestive Heart Failure Inclusion Criteria At DC or during hospital stay patient has or had the following: Discharge Core Measures Meds if any: Prescribed or Continued at Discharge Meds if any: NOT Prescribed or Continued at Discharge Cerebrovascular accident Inclusion Criteria At DC or during hospital stay patient has or had the following: CVA/TIA Diagnosis No Discharge Core Measures Meds if any: Prescribed or Continued at Discharge Meds if any: NOT Prescribed or Continued at Discharge Venous thromboembolism Discharge Core Measures - Per Current guidelines, there needs to be overlap - treatment for the first 5 days of Warfarin therapy. - If discharged on Warfarin prior to 5 days of - overlap therapy, the patient will need to be - assessed for post discharge needs including - *Post discharge parental anticoagulation - *Warfarin and/or parental anticoagulation education - *Follow up date to check INR post discharge Meds if any: Prescribed or Continued at Discharge Note: Overlap Therapy is Warfarin and Anticoagulant Meds if any: NOT Prescribed or Continued at Discharge
[2017-11-03] MEDS ORDERED: BACTRIM DS TAB1 EACH PO (13:36)
--- NOTE | 2017-11-03 13:40 | PN- General Surgery ---
Subjective Subjective: Awake, alert No complaints overnight Pain is well controlled, denies nausea or chills Objective Vital Signs and I&Os Vital Signs Date Time Temp Pulse Resp B/P B/P Pulse O2 O2 Flow FiO2 Mean Ox Delivery Rate 11/03 0812 97.7 67 20 148/80 11/03 0811 97.7 67 20 148/80 11/03 0602 97.7 67 20 148/80 95 Room Air 11/02 2228 98.0 68 20 160/80 94 11/02 2107 68 160/80 11/02 1345 98.5 75 20 140/60 100 Room Air 11/02 1343 72 152/64 Intake & Output 11/03 1600 11/03 0800 11/03 0000 11/02 1600 11/02 0800 11/02 0000 Intake Total 540 370 800 630 510 Output Total 400 Balance 540 370 400 630 510 Intake, IV 300 130 150 150 Intake, Oral 240 240 800 480 360 Output, Urine 400 Physical Exam: vss, afebrile General: alert and oriented times three Wd: dressing changed, packing removed, two open areas asael RLE below the knee, packing saturated with purulent drainage, no active drainage, surrounding erythema, nontender, no other areas of fluctuation noted., normosensate Assessment/Plan Assessment/Plan 72yo female with RLE cellulitis s/p I and D of two areas below the knee Cultures returned prelim - staph Pt doing well on unasyn discussed with Dr Ramos - packing removed dc home on one more week of antibiotics to total 10 days - bactrim at dc follow up in 5 days All instructions given Call with temp>101, increased redness or drainage Core Measures Venous Thromboembolism VTE Risk Factors Surgery No Mechanical VTE Prophylaxis d/t N/A MechProphylax Ordered No VTE Pharm Prophylaxis d/t NA PharmProphylax ordered
[2017-11-03 13:53] VITALS: BP 122/60
== END 2017-11-03 14:09 | DRG 581 ==
LOC: ERH 13:41 → ERHI 21:36 → 2NA 21:36 → ENRESERV 23:07 → 2NA 11-01 00:17 → ENTRNSPT 11-01 17:55 → EDTRNSPT 11-01 18:15 → EDTRNSPTSTS 11-01 18:15 → CMPTRNSPT 11-01 18:32 → ENTRNSPT 11-03 13:48 → EDTRNSPTTYP 11-03 13:51 → EDTRNSPT 11-03 13:51 → EDTRNSPTTYP 11-03 14:02 → EDTRNSPTSTS 11-03 14:02 → EDTRNSPT 11-03 14:02 → EDTRNSPTSTS 11-03 14:03 → 2NA 11-03 14:09 → CMPTRNSPT 11-03 14:36
PROVIDERS: Physician Assistant Medical; Physician Assistant Surgical
PROC: 0H9KXZZ Drainage of Right Lower Leg Skin, External Approach (ICD-10-PCS; 2017-10-31)
PROC: 0J9N0ZZ Drainage of Right Lower Leg Subcutaneous Tissue and Fascia, Open Approach (ICD-10-PCS; principal; 2017-11-01)
DX: L02.415 Cutaneous abscess of right lower limb (principal); I11.0 Hypertensive heart disease with heart failure; I50.9 Heart failure, unspecified; L03.115 Cellulitis of right lower limb; E78.5 Hyperlipidemia, unspecified; K21.9 Gastro-esophageal reflux disease without esophagitis; K22.70 Barrett's esophagus without dysplasia; R32 Unspecified urinary incontinence; F32.9 Major depressive disorder, single episode, unspecified; M71.561 Other bursitis, not elsewhere classified, right knee; F41.9 Anxiety disorder, unspecified; Z87.891 Personal history of nicotine dependence; Z98.1 Arthrodesis status; Z87.828 Personal history of other (healed) physical injury and trauma; Z88.8 Allergy status to other drugs, medicaments and biological substances; Z88.6 Allergy status to analgesic agent
CPT/HCPCS: 2NASP; 87184; ERO; 36415; 71046; 82436; 87040; 87070; 93005; 93010; 96361; 96374; 96375; J1644; J3490; J7120